=== PATIENT | male | born 1935 | race Caucasian/White ===

== ENCOUNTER 2016-11-09 14:13 | Emergency (ER) | payer MEDICARE ==
[~2016-11-09] VITALS: Ht 180.3 cm; Wt 81.6 kg
[~2016-11-09 14:13] MED LIST: ASPI81CH32 PO; CARV12.5 PO; CHLO125TA PO; CORE6.25 PO; DONETAB6 PO; GLIM2TA PO; LISI-538 PO; LOVA20TA2 PO; METF1000 PO; TYLE325T5 PO
[2016-11-09 15:00] LABS: BASO % 0.4 % (0.0-1.0); EOS # 0.1 K/mm3 (0.0-0.50); EOS % 1.7 % (0.0-3.0); LARGE UNSTAINED CELL # 0.2 K/mm3 (0.0-0.4); LARGE UNSTAINED CELL % 2.4 % (0.0-4.0); LYMPH # 1.7 K/mm3 (1.5-4.5); LYMPH % 20.1 % (24.0-44.0); MEAN CORPUSCULAR HEMOGLOBIN 32.7 pg (27.0-33.0); MEAN CORPUSCULAR HGB CONC 32.8 g/dl (32.0-36.5); MEAN CORPUSCULAR VOLUME 99.5 fl (80.0-96.0); MONO # 0.4 K/mm3 (0.0-0.8); NEUTROPHILS # 5.1 K/mm3 (1.8-7.7); NEUTROPHILS % 69.5 % (36.0-66.0); PLATELET COUNT, AUTOMATED 202 k/mm3 (150-450); RED CELL DISTRIBUTION WIDTH 12.3 % (11.5-14.5); WHITE BLOOD COUNT 7.4 K/mm3 (4.0-10.0)
[2016-11-09 15:21] LABS: ANION GAP 6 MEQ/L (8-16); BLOOD UREA NITROGEN 30 MG/DL (7-18); CALCIUM LEVEL 8.6 MG/DL (8.8-10.2); CARBON DIOXIDE LEVEL 31 MEQ/L (21-32); CHLORIDE LEVEL 102 MEQ/L (98-107); CREATININE FOR GFR 1.79 MG/DL (0.70-1.30); GLOMERULAR FILTRATION RATE 39.2 (>42); GLUCOSE, FASTING 208 MG/DL (83-110); POTASSIUM SERUM 4.5 MEQ/L (3.5-5.1); SODIUM LEVEL 139 MEQ/L (136-145)
--- NOTE | 2016-11-09 15:44 | REP ---
PA and lateral chest: Comparison is 08/27/2015. The lung pineda are clear. Cardiac size is borderline, unchanged. There is a dual-chamber pacemaker, unchanged. The melissa, mediastinum, and bony thorax are unchanged unremarkable. Impression: There are no acute cardiopulmonary findings. No change from the prior study. Signed by Delio Smith MD 11/09/2016 03:35 P
[2016-11-09] MEDS ORDERED: NS 500 ML IV ONE (15:45)
[2016-11-09 16:40] VITALS: BP 117/73
[2016-11-09] MEDS ORDERED: JANU100T PO (16:49)
--- NOTE | 2016-11-09 21:51 | ECGEPIP ---
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
== END 2016-11-09 17:44 | disposition home or self-care (01) ==
LOC: M ED 15:31
DX: R55 Syncope and collapse (principal); F03.90 Unspecified dementia, unspecified severity, without behavioral disturbance, psychotic disturbance, mood disturbance, and anxiety; E11.9 Type 2 diabetes mellitus without complications; I10 Essential (primary) hypertension; E78.5 Hyperlipidemia, unspecified; Z95.0 Presence of cardiac pacemaker; Z79.82 Long term (current) use of aspirin; Z79.899 Other long term (current) drug therapy

== ENCOUNTER → 2022-07-07 | Outpatient (REF) | payer MEDICARE, MEDICAID ==
[~2022-07-07] MED LIST changes: -ASPI81CH32 PO; +ASPI81CH33 PO; +DONE-1 PO; -DONETAB6 PO; -GLIM2TA PO; +GLIM2TAB29 PO; +JANU100T PO; -LISI-538 PO; +LISI20TA33 PO; -METF1000 PO; +METF10004 PO
== END ==
LOC: M SFHCWOUN 17:42
PROVIDERS: ATTEND Surgery
DX: L97.514 Non-pressure chronic ulcer of other part of right foot with necrosis of bone (principal)

== ENCOUNTER → 2022-09-10 | Outpatient (REF) | payer MEDICARE, MEDICAID | LOC: M SFHCWOUN 17:13 | PROVIDERS: ATTEND Surgery | DX: L97.514 Non-pressure chronic ulcer of other part of right foot with necrosis of bone (principal) ==